=== PATIENT | female | born 1955 | race Caucasian/White ===

== ENCOUNTER 2020-06-03 09:06 | Emergency (ER) | payer BC ==
[~2020-06-03] VITALS: Ht 177.8 cm; Wt 83.9 kg
--- NOTE | 2020-06-03 09:30 | NUR ---
PT TO RM AT THIS TIME, PER PT PT WOKE AT APPROX 0800 THIS AM, UNABLE TO RECALL EVENTS OF EVENING, UNSURE OF DATE, GENERAL CONFUSION. NO DIFFICULTY IN SPEECH NOTED, NO FOCAL NEURAL DEFICITS. PT TO ALL MONITORS. ERMD IN TO EVAL PT, AWAITING ORDERS
[2020-06-03 09:51] LABS: BASOPHILS % (AUTO) 1 % (0-1); EOSINOPHILS % (AUTO) 1 % (1-7); LYMPHOCYTES % (AUTO) 22 % (22-44); MEAN CORPUSCULAR HEMOGLOBIN 31.9 pg (27.0-34.8); MEAN CORPUSCULAR HGB CONC 34.4 g/dL (32.4-35.8); MEAN PLATELET VOLUME 8.2 fL (7.4-10.4); MONOCYTES % (AUTO) 8 % (2-9); NEUTROPHILS % (AUTO) 68 % (42-75); PLATELET COUNT 338 x10^3/uL (130-400); RED BLOOD COUNT 4.56 x10^6/uL (3.82-5.3); RED CELL DISTRIBUTION WIDTH 12.6 % (9.6-15.2)
[2020-06-03 09:52] LABS: MD NO
[2020-06-03 10:02] LABS: ALBUMIN 3.7 g/dL (3.4-5.0); ANION GAP 4 mmol/L (5-15); CHLORIDE 111 mmol/L (98-107); CREATININE 1.01 mg/dL (0.55-1.02)
--- NOTE | 2020-06-03 10:20 | NUR ---
PT AMBULATED TO BR WITH STEADY GAIT, UDS COLLECTED AND SENT TO LAB
[2020-06-03 10:43] LABS: AMPHETAMINE SCREEN, URINE Negative (Negative); BARBITURATE SCREEN, URINE Negative (Negative); BENZODIAZEPINE SCREEN, URINE Negative (Negative); CANNABINOID SCREEN, URINE Negative (Negative); COCAINE SCREEN, URINE Negative (Negative); METHADONE SCREEN, URINE Negative (Negative); OPIATE SCREEN, URINE Negative (Negative)
[2020-06-03 10:46] VITALS: BP 147/69
[2020-06-03] MEDS ORDERED: ACETAMINOPHEN 325 MG TABLET PO PRN (12:00)
[2020-06-03] MEDS ORDERED: ASPIRIN 325 MG TABLET EC PO SCH (12:00)
[2020-06-03] MEDS ORDERED: ONDANSETRON ODT 4 MG PO PRN (12:30)
[2020-06-03] MEDS ORDERED: ENOXAPARIN 40 MG/0.4 ML SQ SCH (12:30)
--- NOTE | 2020-06-03 12:30 | NUR ---
PT TO BE ADMITTED, UPDATED PT AND ON POC. VSS, NAD NOTED.
--- NOTE | 2020-06-03 13:08 | NUR ---
MEAL TRAY ORDERED FOR PT
[2020-06-03 13:48] LABS: MICROSCOPIC NOT IND
--- NOTE | 2020-06-03 13:49 | NUR ---
PT NOW WISHING TO BE DISCHARGED HOME, PT WITH ALMOST COMPLETE RESOLUTION OF SYMPTOMS. HOSPITALIST CALLED AND UPDATED, PENDING UA THEN POSSIBLE DC HOME, DISCUSSED WITH PT/
--- NOTE | 2020-06-03 15:30 | NUR ---
Patient/Caregiver given discharge instructions and they have confirmed that they understand the instructions. Patient ambulatory with steady gait. ALL BELONGINGS WITH PT ON DC
[2020-06-03] MEDS ORDERED: MELATONIN 5 MG TABLET PO PRN (21:00)
== END 2020-06-03 16:07 ==
LOC: ED 09:51 → EDIP 11:23 → UNDOADMOB 11:23 → INTOOBSV 11:23 → ED 16:07
DX: G45.4 Transient global amnesia (principal); F44.89 Other dissociative and conversion disorders; R05 Cough
CPT/HCPCS: 70450; 70551; 80048; 80307; 81003; 82040; 82962; 84146; 85025; 93005; 99285